=== PATIENT | male | born 1990 | race Caucasian/White ===

== ENCOUNTER 2025-01-28 12:59 | Outpatient (REF) | payer MEDICAID, OTHER, SELFPAY ==
--- NOTE | ~2025-01-28 | US_ITS ---
EXAMINATION: US PELVIS LIMITED HISTORY: right inguinal pain and swelling COMPARISON: There are no prior studies for comparison. TECHNIQUE: Sonographic examination of the bilateral inguinal regions was performed. FINDINGS: No hernia is identified. There is no lymphadenopathy. Incidental note is made of debris in the urinary bladder. US/US pelvic limited IMPRESSION: No inguinal hernia is identified. Electronically signed by: Mayank Poe MD 01/28/2025 02:12 PM EDT
== END 2025-01-28 13:00 | disposition home or self-care (01) ==
LOC: HO.US 12:59
PROVIDERS: Visit Provider Internal Medicine
DX: K40.90 Unilateral inguinal hernia, without obstruction or gangrene, not specified as recurrent (principal)
CPT/HCPCS: 76857

== ENCOUNTER → 2025-01-28 13:08 | Outpatient (BNV) | payer SELFPAY | PROVIDERS: Visit Provider Radiology Diagnostic Radiology | DX: R10.31 Right lower quadrant pain (principal); R19.09 Other intra-abdominal and pelvic swelling, mass and lump | CPT/HCPCS: 76857 ==

== ENCOUNTER 2025-03-22 09:49 | Outpatient (REF) | payer SELFPAY ==
--- OUTSIDE RECORDS SUMMARY | 2025-03-22 10:57 | XMS_ITS | Clinical Summary ---
Author Organization [employer] Address [address] [place] [address] Care Team Providers Care Service Dispatcher Name Role Phone Unavailable Primary Care Provider Unavailabl e Allergies No known active allergies Medications No known medications Active Problems Problem Noted Date Diagnosed Date Chronic RLQ pain 03/22/2025 Assessment & Plan (03/22/2025 9:45 AM EDT): Exam c/w inguinal hernia. Pt was referrd to surgery 01/31/25 but was not aware of referral. Number given for him to call. Will check CBC, UA, Uculutre and GC chl for completeness given occ dysuria symtpoms. Right inguinal hernia 03/22/2025 Assessment & Plan (03/22/2025 9:51 AM EDT): Exam c/w right reducible right inguinal hernia. Given occasional dysuria STI screening and UA culture ordered. Pelvic US 01/2025 unremarkable. Pt has referral to general surgery from visit , was given the number to call and schedule. -ER precautions discussed -he agrees with the plan Encounters Date Type Department Care Team Description 03/22/2025 9:20 AM EDT Office Visit [facility] [address] [place] [address] Doris Nicole MD Right inguinal hernia (Primary Dx); Chronic RLQ pain 02/16/2025 Telephone [facility] MEDICINE [address] [place] [address] Ori Avilez MD new pt appt 02/16/2025 Telephone [facility] MEDICINE [address] [place] [address] Ori Avilez MD 01/28/2025 10:00 AM EDT Office Visit [facility] [address] [place] [phone] Vanessa Arvizu MD Right inguinal hernia (Primary Dx) 01/28/2025 Telephone [facility] PEDS [address] [place] [address] Vanessa Arvizu MD 01/28/2025 Telephone [facility] [address] [place] [phone] Vanessa Arvizu MD New patient appt. 01/28/2025 Travel from Last 3 Months Social History Tobacco Use Types Packs/Day Years Used Date Smoking Tobacco: Never Passive Smoke Exposure: Never Smokeless Tobacco: Never Alcohol Use Standard Drinks/Week Comments Yes 0 (1 standard drink = 0.6 oz pur e alcohol) Sex and Gender Information Value Date Recorded Sex Assigned at Male 01/28/2025 9:06 AM EDT Legal Sex Male 3:09 PM EDT Gender Identity Male 01/28/2025 9:06 AM EDT Sexual Orientation Don't know 01/28/2025 9: 18 AM EDT Last Filed Vital Signs Vital Sign Reading Time Taken Comments Blood Pressure 136/72 03/22/2025 8:51 AM EDT Pulse 62 03/22/2025 8:51 AM EDT Temperature 36.3 ??C (97.4 ??F) 03/22/2025 8:51 AM ED T Respiratory Rate 18 03/22/2025 8:51 AM EDT Oxygen Saturation 99% 03/22/2025 8:51 AM EDT Inhaled Oxygen Concentration - - Weight 68.7 kg (151 lb 6.4 oz) 03/22/2025 8:51 A M EDT Height 165.1 cm (5' 5 ) 01/28/2025 10:00 AM EDT Body Mass Index 25.19 01/28/2025 10:00 AM EDT Plan of Treatment Upcoming Encounters Date Type Department Care Team (Late st Contact Info) Description 06/08/2025 2:00 PM EDT Office Visit [facility] MEDICINE [address] [place] [phone] Justa Kahn NP [address] [place] [address] Health Maintenance Due Date Last Done Comments Depression Screening 1991 HIV Screening 1991 SDOH Screening 1991 Alcohol/Substance Use Screening 2003 Family Planning (PISQ) 2006 Hepatitis C Screening 2009 DTaP/Tdap/Td Vaccines (1 - Tdap) 2010 Hepatitis B Vaccines (1 of 3 - 19+ 3-dose series) 2010 COVID-19 Vaccine ( - 2023-2 5 season) 2024 Influenza Vaccine (#1) 2024 Tobacco Screening 01/28/2026 01/28/2025 Zoster Vaccines (1 of 2) 2041 RSV Patients and Pa tients Aged 60 years or older (1 - 1-dose 75+ series) 2066 HIB Vaccines Aged Out No longer eligi ble based on patient's age to complete this topic HPV Vaccines Aged Out No longer eligi ble based on patient's age to complete this topic Hepatitis A Vaccines Aged Out No long er eligible based on patient's age to complete this topic IPV Vaccines Aged Out No longer eligi ble based on patient's age to complete this topic Meningococcal Vaccine Aged Out No bertram twyla eligible based on patient's age to complete this topic Pneumococcal Vaccine: Pediat rics (0 to 5 Years) and At-Risk Patients (6 to 49) Years) Aged Out No longer elig ible based on patient's age to complete this topic RSV under 20 months Aged Out No longe r eligible based on patient's age to complete this topic Rotavirus Vaccines Aged Out No longer eligible based on patient's age to complete this topic Procedures Procedure Name Priority Date/Time Associated Diagnosis Comments POCT URINALYSIS DIPSTICK Routine 03/22/2025 9:50 AM EDT Chronic RLQ pain US PELVIS LIMITED STAT 01/28/2025 1:5 4 PM EDT Right inguinal hernia POCT URINALYSIS DIPSTICK Routine 01/28/2025 10:23 AM EDT Right inguinal hernia from Last 3 Months Results * POCT urinalysis dipstick manually resulted (03/22/2025 9:50 AM EDT) Only the most recent of2 resultswithin the time period is included. Color, UA Yellow Clarity, UA Clear Glucose, UA Negative Bilirubin, UA Negative Ketones, UA Negative Spec Grav, UA 1.025 Blood, UA Negative Negative, None Detected pH, UA 5.5 Protein, UA Negative Urobilinogen, UA 0.2 Leukocytes, UA Negative Negative, Rare, Trace Nitrite, UA Negative Negative, None Detected Urine 03/22/2025 9:50 AM EDT Doris Nicole MD POINT OF CARE TEST ENTER/E DIT ORDERABLES Final Result * US Pelvis Limited (01/28/2025 1:54 PM EDT) Anatomical Region Laterality Modality Pelvis Ultrasound 01/28/2025 1:54 PM EDT Narrative 01/28/2025 2:15 PM EDT ? [facility] ?[address] ?[place] [address] ? Ultrasound Report ? Signed ? Patient: Miguel Landin ?MR#: [id number] ?? [id number] ? : 1990 ?Acct:[id number] ? Age/Sex: 34 / M ?ADM Date: 01/28/25 ? Loc: HO.US ? Attending Dr: Vanessa Arvizu MD ? Ordering Physician: Vanessa Arvizu MD ?? Date of Service: 01/28/25 ?? Procedure(s): US pelvic limited ?? Accession Number(s): [id number] ? cc: Vanessa Arvizu MD; Physician,None ? EXAMINATION: ??US PELVIS LIMITED ? HISTORY: ??right inguinal pain and swelling ? COMPARISON: There are no prior studies for comparison. ? TECHNIQUE: ? Sonographic examination of the bilateral inguinal regions was performed. ? FINDINGS: ? No hernia is identified. There is no lymphadenopathy. Incidental note ?? is made of debris in the urinary bladder. ? US/US pelvic limited ?? IMPRESSION: ?? No inguinal hernia is identified. ? Electronically signed by: ??Mayank Poe MD ??01/28/2025 02:12 PM EDT ?? RP ? Dictated By: ?Mayank Poe MD ? Signed By: ?<Electronically signed by Mayank Poe MD in OV> ?01/28/ 1412 ? DD/ 1354 ? TD/TT: 01/28/25 1402 ? Aco Coordinator: ? Procedure Note Dondwayneter, Image - 01/28/2025 [place] [id number] Ultrasound Report Signed Patient: Miguel LandinMR#: [id number] : 1990Acct:[id number] Age/Sex: 34 / MADM Date: 01/28/25 Loc: HO.US Attending Dr: Vanessa Arvizu MD Ordering Physician: Vanessa Arvizu MD Date of Service: 01/28/25 Procedure(s): US pelvic limited Accession Number(s): [id number] cc: Vanessa Arvizu MD; Physician,None EXAMINATION: US PELVIS LIMITED HISTORY: right inguinal pain and swelling COMPARISON: There are no prior studies for comparison. TECHNIQUE: Sonographic examination of the bilateral inguinal regions was performed. FINDINGS: No hernia is identified. There is no lymphadenopathy. Incidental note is made of debris in the urinary bladder. US/US pelvic limited IMPRESSION: No inguinal hernia is identified. Electronically signed by: Mayank Poe MD 01/28/2025 02:12 PM EDT Dictated By: Mayank Poe MD Signed By: <Electronically signed by Mayank Poe MD in OV> 01/28/25 1412 DD/ 1354 TD/TT: 01/28/25 1402 Aco Coordinator: Vanessa Arvizu MD IMG US PROCEDURES Final Resul t from Last 3 Months Insurance N FULL
--- OUTSIDE RECORDS SUMMARY | 2025-03-22 10:57 | XMS_ITS | Encounter Summary ---
Author Organization [employer] Address [address] [place] [address] Care Team Providers Care Telephone Sales Agent Name Role Phone Unavailable Primary Care Provider Unavailabl e Reason for Visit * Reason Comments bladder pain Encounter Details Date Type Department Care Team ([facility] st Contact Info) Description 03/22/2025 9:20 AM EDT Office Visit [facility] W[facility] [address] [place] [phone] Doris Nicole MD [address] [place] [address] Right inguinal hernia (Primary Dx); Chronic RLQ pain Social History Tobacco Use Types Packs/Day Years [...] Don't know 01/28/2025 9: 18 AM EDT documented as of this encounter Last Filed Vital Signs Vital Sign Reading [...] oz) 03/22/2025 8:51 A M EDT Height - - Body Mass Index 25.19 01/28/2025 10:00 AM EDT documented in this encounter Progress Notes * Doris Nicole MD - 03/22/2025 9:20 AM EDT Subjective Miguel Toro is a 34 y.o. male here for evaluation of RLQ pain. He reports years ago he had the same problem. And it went away then in September 2025 started feeling a pain in RLQ that comes and goes, it has gotten worse since that time. Pain started gradually and mildly, worse when sitting up or coughing or sneezing, better when lying down. At its worse, pain is a 8/10 in severity. Associated with some swelling in the lower abdomen. Has some pain in the area with urination but no dysuria, hematuria and no flank pain. No change in bowel habits. Wonders if it is a hernia or appendicitis.No fever or chills, no nausea or vomiting, no loss of appetite. Seen 01/28/25 in Walk [facility] Center repor ting 3 weeks of suprapubic pain. He was referred to surgery. US and UA were normal. Denies constipation, diarrhea or stressors. Objective BP 136/72 (BP Location: Left arm, Patient Position: Sitting, BP Cuff Size: Adult) Pulse 62 Temp97.4 ??F (36.3 ??C) (Temporal) Resp 18 Wt 151 lb 6.4 oz (68.7 kg) SpO2 99% BMI 25.19 kg/m?? Physical Exam Abdominal: General: Abdomen is flat. Bowel sounds are normal. Palpations: Abdomen is soft. Tenderness: There is no abdominal tenderness. There is no guarding. Hernia: A hernia is present. Comments: Palpable, reducible mass in right pubic area UA dip 03/22/25 negative pelvic US 01/2025 No hernia is identified. There is no lymphadenopathy. Incidental note is made of debris in the urinary bladder. UA 01/2025 negative Miguel was seen today for bladder pain. Diagnoses and all orders for this visit: Right inguinal hernia (Primary) Chronic RLQ pain - POCT urinalysis dipstick manually resulted - Chlamydia/N. Gonorrhoeae RNA, TMA, Urogenitial - Urinalysis, Complete, with Reflex to Culture - CBC; Future Problem List Items Addressed This Visit Right inguinal hernia - Primary Exam c/w right reducible right inguinal hernia. Given occasional dysuria STI screening and UA culture ordered. Pelvic US 01/2025 unremarkable. Pt has referral to general surgery from visit , was given the number to call and schedule. -ER precautions discussed -he agrees with the plan Chronic RLQ pain Exam c/w inguinal hernia. Pt was referrd to surgery 01/31/25 but was not aware of referral. Number given for him to call. Will check CBC, UA, Uculutre and GC chl for completeness given occ dysuria symtpoms. Relevant Orders POCT urinalysis dipstick manually resulted (Completed) Chlamydia/N. Gonorrhoeae RNA, TMA, Urogenitial Urinalysis, Complete, with Reflex to Culture CBC documented in this encounter Miscellaneous Notes * Assessment & Plan Note - Doris Nicole MD - 03/22/2025 9:51 AM EDT Associated Problem(s): Right inguinal hernia Exam c/w right reducible right inguinal hernia. Given occasional dysuria STI screening and UA culture ordered. Pelvic US 01/2025 unremarkable. Pt has referral to general surgery from visit , was given the number to call and schedule. -ER precautions discussed -he agrees with the plan * Assessment & Plan Note - Doris Nicole MD - 03/22/2025 9:45 AM EDT Associated Problem(s): Chronic RLQ pain Exam c/w inguinal hernia. Pt was referrd to surgery 01/31/25 but was not aware of referral. Number given for him to call. Will check CBC, UA, Uculutre and GC chl for completeness given occ dysuria symtpoms. documented in this encounter Plan of Treatment Upcoming Encounters Date Type Department Care Team (Late st Contact Info) Description 06/08/2025 2:00 PM EDT Office Visit [facility] MEDICINE [address] [place] [address] Justa Kahn NP [address] [place] [address] Scheduled Orders Name Type Priority Associated Diagnoses Orde r Schedule Chlamydia/N. Gonorrhoeae RNA, TMA, Urogenitial Microbiology Routine Chronic RLQ pain Ordered: 03/22/2025 Urinalysis, Complete, with Reflex to Culture Lab Routine Chronic RLQ pain Ordered: 03/22/2025 CBC Lab Routine Chronic RLQ pain Expected: 03/22/2025, Expires: 03/22/2026 documented as of this encounter Procedures Procedure Name Priority Date/Time Associated Diagnosis Comments POCT URINALYSIS DIPSTICK Routine 03/22/2025 9:50 AM EDT Chronic RLQ pain documented in this encounter Results * POCT urinalysis dipstick manually resulted (03/22/2025 9:50 AM EDT) Color, UA Yellow Clarity, UA Clear Glucose, UA Negative Bilirubin, UA Negative Ketones, UA Negative Spec Grav, UA 1.025 Blood, UA Negative Negative, None Detected pH, UA 5.5 Protein, UA Negative Urobilinogen, UA 0.2 Leukocytes, UA Negative Negative, Rare, Trace Nitrite, UA Negative Negative, None Detected Urine 03/22/2025 9:50 AM EDT Doris Nicole MD POINT OF CARE TEST ENTER/E DIT ORDERABLES Final Result documented in this encounter Visit Diagnoses Diagnosis Right inguinal hernia- Primary Inguinal hernia without mention of obstruction or gangrene, unilateral or unspecified, (not specified as recurrent) Chronic RLQ pain Abdominal pain, right lower quadrant documented in this encounter
[2025-03-22 11:23] LABS: Hematocrit 46.8 % (42.0-52.0); Hemoglobin 15.5 g/dl (14.0-18.0); Mean Corpuscular HGB Conc 33.1 g/dl (31.0-36.0); Mean Corpuscular Hemoglobin 28.9 pg (27.0-33.0); Mean Corpuscular Volume 87.2 fL (80.0-98.0); Mean Platelet Volume 10.4 fL (9.4-12.4); Platelet Count 221 X10*3/uL (160-400); Red Blood Count 5.37 X10*6/uL (4.60-5.80); Red Cell Distribution Width 13.1 % (11.0-16.0); White Blood Count 5.5 X10*3/uL (4.8-10.8)
[2025-03-22 16:22] LABS: Appearance Urine Turbid; Color Urine Yellow; Glucose Urine UA Negative (Negative); Leukocyte Esterase Urine Negative (Negative); Nitrite Urine Negative (Negative); PH 5.5 (5.0-9.0); Specific Gravity - Urine 1.025 (1.005-1.025); Urine Blood Negative (Negative); Urine Ketones Negative (Negative); Urine Protein Negative (Neg-Trace)
[2025-03-22 16:27] LABS: Bacteria Urine None Seen (None Seen); Hyaline Casts Urine 0-2 /LPF (0-2); RBC Urine 0-2 /HPF (0-2); Squamous Epithelial Cell Urine 0-2 /HPF (0-2); WBC Urine 0-5 /HPF (0-5)
[2025-03-23 07:24] LABS: CT PCR NOT DETECTED (Not Detect.); NG PCR NOT DETECTED (Not Detect.)
== END 2025-03-22 09:50 | disposition home or self-care (01) ==
LOC: HO.HHCL 09:49
PROVIDERS: Visit Provider Family Medicine
DX: R10.31 Right lower quadrant pain (principal); G89.29 Other chronic pain
CPT/HCPCS: 36415; 81001; 85027; 87491; 87591

== ENCOUNTER 2025-06-08 17:36 | Outpatient (REF) | payer SELFPAY ==
[2025-06-13 07:09] LABS: Mycoplasma hominis PCR Not Detected (Not Detected)
== END 2025-06-08 17:37 | disposition home or self-care (01) ==
LOC: HO.LNP 17:36
PROVIDERS: Visit Provider Nurse Practitioner
DX: R35.0 Frequency of micturition (principal)
CPT/HCPCS: 87563; 87661; 87798